=== PATIENT | male | born 1965 | race Caucasian/White ===

== ENCOUNTER 2017-12-25 02:29 | Inpatient (IN) | payer MEDICARE, MEDICAID ==
[~2017-12-25] VITALS: Ht 177.8 cm; Wt 147.2 kg
[~2017-12-25 02:29] MED LIST: ACYC-57 PO; AMIT10TA PO; AMLO5TAB2 PO; CEFD300C37 PO; CEPH-367 PO; CITA20TA9 PO; DOCU-131 PO; DOXY100T PO; FAMO20TA7 PO; FURO-92 PO; GABA100C PO; HYDR-3240 PO; IPRA4AER INH; LISI-170 PO; LOSA50TA2 PO; LOVA20TA2 PO; NICO-486 TD; POTA10TA11 PO; PRED5TAB PO
[2017-12-25 03:29] LABS: BASOPHILS # (AUTO) 0.12 x10^3/uL (0-0.1); BASOPHILS % (AUTO) 1 % (0-1); EOSINOPHILS # (AUTO) 0.23 x10^3/uL (0-0.4); EOSINOPHILS % (AUTO) 3 % (1-7); LYMPHOCYTES # (AUTO) 1.96 x10^3/uL (1-3.4); LYMPHOCYTES % (AUTO) 23 % (22-44); MD NO; MEAN CORPUSCULAR HEMOGLOBIN 32.1 pg (27.5-34.5); MEAN CORPUSCULAR HGB CONC 34.1 g/dL (33.2-36.2); MEAN PLATELET VOLUME 9.6 fL (7.4-10.4); MONOCYTES # (AUTO) 0.84 x10^3/uL (0.2-0.8); MONOCYTES % (AUTO) 10 % (2-9); NEUTROPHILS # (AUTO) 5.41 x10^3/uL (1.8-6.8); NEUTROPHILS % (AUTO) 63 % (42-75); PLATELET COUNT 209 x10^3/uL (130-400); RED BLOOD COUNT 4.64 x10^6/uL (4.38-5.82); RED CELL DISTRIBUTION WIDTH 13.9 % (9.4-14.8)
[2017-12-25 03:37] LABS: ALANINE AMINOTRANSFERASE 24 U/L (12-78); ALBUMIN 3.3 g/dL (3.4-5.0); ANION GAP 7 mmol/L (5-15); CALCIUM 8.4 mg/dL (8.5-10.1); CHLORIDE 107 mmol/L (98-107); CREATININE 0.88 mg/dL (0.7-1.3)
[2017-12-25 03:42] LABS: ALKALINE PHOSPHATASE 124 U/L (45-117); BILIRUBIN,TOTAL 0.3 mg/dL (0.2-1.0); TOTAL PROTEIN 6.9 g/dL (6.4-8.2); TROPONIN I < 0.015 ng/mL (0.000-0.045)
[2017-12-25] MEDS ORDERED: FUROSEMIDE 40 MG/4 ML IV ONE (04:30)
[2017-12-25] MEDS ORDERED: FUROSEMIDE 40 MG/4 ML ONE (04:34)
[2017-12-25 05:22] VITALS: BP 166/100
[2017-12-25] MEDS ORDERED: ONDANSETRON 2MG/ML, 2ML IVPush PRN (06:00)
[2017-12-25] MEDS ORDERED: PROMETHAZINE 25 MG/ML, 1ML IM PRN (06:00)
[2017-12-25] MEDS ORDERED: POLYETHYLENE GLYCOL 17 GM PACKET PO PRN (06:00)
[2017-12-25] MEDS ORDERED: DOCUSATE 100 MG CAPSULE PO PRN (06:00)
[2017-12-25] MEDS ORDERED: BISACODYL 10 MG SUPP PR PRN (06:00)
[2017-12-25] MEDS ORDERED: morphine SULFATE 10 MG/ML, 1ML IVPush PRN (06:00)
[2017-12-25] MEDS ORDERED: LABETALOL 5MG/ML, 20ML IVPush PRN (06:00)
[2017-12-25] MEDS ORDERED: ONDANSETRON ODT 4 MG PO PRN (06:00)
[2017-12-25] MEDS: ENOXAPARIN 40 MG/0.4 ML SQ SCH (06:29)
[2017-12-25] MEDS: CARVEDILOL 6.25 MG TABLET PO SCH ×2 (06:29→17:36)
[2017-12-25 06:35] LABS: FREE T4 (FREE THYROXINE) 0.96 ng/dL (0.76-1.46); THYROID STIMULATING HORMONE 0.996 mIU/L (0.358-3.740)
[2017-12-25 06:54] LABS: HEMOGLOBIN A1C 5.9 % (4.2-6.3)
[2017-12-25 06:55] VITALS: BP 144/83
[2017-12-25 06:57] LABS: CULTURE INDICATED? NO; MICROSCOPIC AUTO
[2017-12-25 07:46] LABS: TROPONIN I < 0.015 ng/mL (0.000-0.045)
[2017-12-25] MEDS: FUROSEMIDE 20 MG/2 ML IV SCH ×2 (08:21→17:36)
[2017-12-25] MEDS: NICOTINE 7 MG/24 HR PATCH.TD24 TD SCH (08:21)
[2017-12-25] MEDS: LOSARTAN 25MG TABLET PO SCH (08:21)
[2017-12-25] MEDS: ACETAMINOPHEN 325 MG TABLET PO PRN (13:46)
[2017-12-25 14:00] VITALS: BP 126/70
[2017-12-25 14:06] LABS: TROPONIN I < 0.015 ng/mL (0.000-0.045)
[2017-12-25] MEDS ORDERED: ALBUTEROL/IPRATROPIUM 2.5MG/0.5MG, 3 ML ONE (14:57)
[2017-12-25] MEDS ORDERED: ALBUTEROL/IPRATROPIUM 2.5MG/0.5MG, 3 ML NPPB PRN (17:30)
[2017-12-25 17:35] VITALS: BP 126/72
[2017-12-25] MEDS: OXYcodone IR 5MG TABLET PO PRN (18:43)
[2017-12-25 19:18] VITALS: BP 108/67
[2017-12-26] MEDS: OXYcodone IR 5MG TABLET PO PRN ×2 (00:25→06:44)
[2017-12-26 01:15] VITALS: BP 124/76
[2017-12-26 05:32] VITALS: BP 121/72
[2017-12-26] MEDS: CARVEDILOL 6.25 MG TABLET PO SCH ×2 (05:33→17:20)
[2017-12-26] MEDS: ENOXAPARIN 40 MG/0.4 ML SQ SCH (05:33)
[2017-12-26 05:44] LABS: BASOPHILS # (AUTO) 0.05 x10^3/uL (0-0.1); BASOPHILS % (AUTO) 1 % (0-1); EOSINOPHILS # (AUTO) 0.29 x10^3/uL (0-0.4); EOSINOPHILS % (AUTO) 4 % (1-7); LYMPHOCYTES % (AUTO) 27 % (22-44); MD NO; MEAN CORPUSCULAR HGB CONC 33.9 g/dL (33.2-36.2); MEAN CORPUSCULAR VOLUME 94.3 fL (81-97); MEAN PLATELET VOLUME 9.6 fL (7.4-10.4); MONOCYTES # (AUTO) 0.78 x10^3/uL (0.2-0.8); MONOCYTES % (AUTO) 9 % (2-9); NEUTROPHILS # (AUTO) 4.98 x10^3/uL (1.8-6.8); NEUTROPHILS % (AUTO) 60 % (42-75); PLATELET COUNT 204 x10^3/uL (130-400); RED BLOOD COUNT 5.01 x10^6/uL (4.38-5.82)
[2017-12-26 05:49] LABS: ALANINE AMINOTRANSFERASE 26 U/L (12-78); ALBUMIN 3.2 g/dL (3.4-5.0); ANION GAP 7 mmol/L (5-15); CALCIUM 8.8 mg/dL (8.5-10.1); CHLORIDE 103 mmol/L (98-107)
[2017-12-26 05:52] LABS: ALKALINE PHOSPHATASE 108 U/L (45-117); BILIRUBIN,TOTAL 0.5 mg/dL (0.2-1.0); CHOL/HDL RATIO 4.4; CHOLESTEROL, TOTAL 154 mg/dL (140-239); HDL CHOL % 23 % (26-37); HDL CHOLESTEROL (DIRECT) 35 mg/dL (40-60); LDL CHOLESTEROL,CALCULATED 88 mg/dL (54-169); LDL/HDL RATIO 2.5 (0.5-3.0); TRIGLYCERIDES 153 mg/dL (50-200); VLDL CHOLESTEROL 31 mg/dL (0-25)
[2017-12-26 06:55] VITALS: BP 123/87
[2017-12-26] MEDS: FUROSEMIDE 20 MG/2 ML IV SCH ×2 (08:08→17:20)
[2017-12-26] MEDS: LOSARTAN 25MG TABLET PO SCH (08:08)
[2017-12-26] MEDS: ACETAMINOPHEN 325 MG TABLET PO PRN (08:08)
[2017-12-26] MEDS: NICOTINE 7 MG/24 HR PATCH.TD24 TD SCH (08:14)
[2017-12-26] MEDS: ASA/APAP/ CAFFEINE TABLET PO PRN (12:10)
[2017-12-26 12:21] VITALS: BP 121/85
[2017-12-26 17:19] VITALS: BP 122/77
[2017-12-26 20:00] VITALS: BP 118/77
[2017-12-27] MEDS: ASA/APAP/ CAFFEINE TABLET PO PRN (01:59)
[2017-12-27 02:00] VITALS: BP 144/83
[2017-12-27 05:18] VITALS: BP 128/89
[2017-12-27] MEDS: ENOXAPARIN 40 MG/0.4 ML SQ SCH (05:22)
[2017-12-27] MEDS: CARVEDILOL 6.25 MG TABLET PO SCH ×2 (05:22→17:22)
[2017-12-27 07:06] VITALS: BP 109/69
[2017-12-27] MEDS: FUROSEMIDE 20 MG/2 ML IV SCH ×2 (07:50→17:22)
[2017-12-27] MEDS: LOSARTAN 25MG TABLET PO SCH (07:50)
[2017-12-27] MEDS: NICOTINE 7 MG/24 HR PATCH.TD24 TD SCH (07:51)
[2017-12-27 12:36] VITALS: BP 139/76
[2017-12-27 18:53] VITALS: BP 109/75
[2017-12-28 01:59] VITALS: BP 126/85
[2017-12-28] MEDS: ENOXAPARIN 40 MG/0.4 ML SQ SCH (05:08)
[2017-12-28] MEDS: CARVEDILOL 6.25 MG TABLET PO SCH (05:09)
[2017-12-28 05:34] LABS: ANION GAP 8 mmol/L (5-15); CALCIUM 9.2 mg/dL (8.5-10.1); CHLORIDE 101 mmol/L (98-107); CREATININE 0.81 mg/dL (0.7-1.3)
[2017-12-28 06:50] VITALS: BP 125/81
[2017-12-28] MEDS: FUROSEMIDE 20 MG/2 ML IV SCH (08:11)
[2017-12-28] MEDS: LOSARTAN 25MG TABLET PO SCH (08:11)
[2017-12-28] MEDS: NICOTINE 7 MG/24 HR PATCH.TD24 TD SCH (08:11)
[2017-12-28] MEDS ORDERED: LOSA25TA2 PO (10:39)
[2017-12-28] MEDS ORDERED: ASPI1TAB61 PO (10:39)
[2017-12-28] MEDS ORDERED: ACET325T14 PO (10:39)
[2017-12-28] MEDS ORDERED: ATOR20TA9 PO (10:39)
[2017-12-28] MEDS ORDERED: CARV6.2512 PO (10:39)
[2017-12-28] MEDS ORDERED: FURO-93 PO (10:39)
[2017-12-28] MEDS ORDERED: ASPI-621 PO (10:39)
== END 2017-12-28 12:49 | disposition home or self-care (01) | DRG 291 ==
LOC: ED 04:01 → EDIP 04:26 → 4WST 05:22
PROVIDERS: ADMIT Internal Medicine; ATTEND Internal Medicine
DX: I13.0 Hypertensive heart and chronic kidney disease with heart failure and stage 1 through stage 4 chronic kidney disease, or unspecified chronic kidney disease (principal); I50.33 Acute on chronic diastolic (congestive) heart failure; J96.10 Chronic respiratory failure, unspecified whether with hypoxia or hypercapnia; E66.2 Morbid (severe) obesity with alveolar hypoventilation; Z68.41 Body mass index [BMI] 40.0-44.9, adult; F17.210 Nicotine dependence, cigarettes, uncomplicated; E78.5 Hyperlipidemia, unspecified; F32.9 Major depressive disorder, single episode, unspecified; G43.909 Migraine, unspecified, not intractable, without status migrainosus; I77.819 Aortic ectasia, unspecified site; J44.9 Chronic obstructive pulmonary disease, unspecified; N18.2 Chronic kidney disease, stage 2 (mild); Z91.14 Patient's other noncompliance with medication regimen
CPT/HCPCS: 36415; 71045; 80048; 80053; 80061; 81001; 83036; 83735; 83880; 84439; 84443; 84484; 85025; 93005; 93306; 93970; 94640; 96374; J1650; J1940